=== PATIENT | male | born 1965 | race Caucasian/White ===

== ENCOUNTER 2016-07-12 18:03 | Emergency (ER) | payer MEDICAID, OTHER ==
[~2016-07-12] VITALS: Ht 182.9 cm; Wt 80.5 kg
[2016-07-12 18:13] VITALS: Ht 182.9 cm; Wt 80.5 kg
--- NOTE | 2016-07-12 19:46 | ERD ---
ER Documentation Chief Complaint Date/Time DATE: 07/12/16 TIME: 19:44 Chief Complaint WRIST PAIN AFTER LIFTING HEAVY OBJECTS TODAY. NO DEFORMITY, GOOD PULSE HPI 51-year-old male who presented emergency room for right wrist pain. Stated that the pain started after he was lifting objects while working. Denies headache, loss of consciousness, dizziness, blurry vision, changes in vision, photophobia, facial pain, ear pain, throat pain, difficulty swallowing, neck pain, shoulder pain, chest pain, cough, hemoptysis, abdominal pain, back pain, loss of appetite, nausea, vomiting, hematochezia, diarrhea, constipation, urinary symptoms, bladder and bowel incontinences, numbness or tingling sensation, difficulty walking, recent travel, recent exposure to illness, recent antibiotic use in the last 3 months, fever, chills. Allergies to naproxen, hydrocodone. Past medical history of hypertension, Anxiety. Surgical history of right wrist surgery with screw. Medication: Lisinopril, Prozac. Social history: Self-employed. Right-handed. Smokes about 20 sticks of cigarettes a day. Denies use of alcoholic beverages, use of illegal drugs. ROS All systems reviewed and are negative except as per history of present illness. Medications Home Meds Active Scripts Tramadol HCl (Tramadol HCl) 50 Mg Tablet, 50 MG PO Q4 Y for PAIN, #15 TAB Prov:KAREN KITCHEN 07/12/16 Allergies Allergies: Coded Allergies: naproxen (Unverified Allergy, Unknown, 07/12/16) PMhx/Soc Medical and Surgical Hx: pt denies Surgical Hx Hx Cardiac Disorders: Yes (HTN ) Hx Psychiatric Problems: Yes (Depression ) Hx Miscellaneous Medical Probl: Yes (Chronic pain possibly on percocet) Hx Alcohol Use: No Hx Substance Use: No Hx Tobacco Use: Yes Smoking Status: Current every day smoker Physical Exam Vitals Vital Signs Date Time Temp Pulse Resp B/P Pulse Ox O2 Delivery O2 Flow Rate FiO2 07/12/16 21:53 98.6 20 142/80 98 Room Air 07/12/16 18:13 99.3 80 20 136/86 98 Physical Exam CONSTITUTIONAL: Well-appearing; well-nourished; in no apparent distress. HEAD: Normocephalic; atraumatic. EYES: Conjunctiva clear, sclera non-icteric, EOM intact. PERRL Ears: Hearing intact. EACs clear, TMs non-bulging, non-inflamed, translucent & mobile, ossicles normal appearance, No obstructions, no erythema, no discharges Nose: No obstructions. No polyps. No external lesions. Mucosa non-inflamed. No external lesions, septum and turbinates normal. No rhinorrhea. No discharges. Frontal sinus is non-tender to palpation. Maxillary sinus is non-tender to palpation. MOUTH: Moist mucous membranes, no lesion, no obstructions, no vesicles, no thrush, patent airway Throat: Uvula in midline. Right tonsil is +1 with no erythema, no exudate. Left tonsil is +1 with no erythema, no exudate. Tolerating secretions well. Good gag reflex. Patent airway. Neck: Supple, without lesions, bruits, or adenopathy. No mass. Thyroid non- enlarged and non-tender to palpation. CHEST: Symmetrical chest. Respirations even and not labored. No retractions noted. CARDIOVASCULAR: Normal S1, S2. RRR. No murmurs, gallops. RESPIRATORY: Normal chest excursion with respiration; breath sounds clear and equal bilaterally; no wheezes, rhonchi, or rales. Breathing even and unlabored. Speaking in clear, full, and complete sentences w/ ease. ABDOMEN: Normal bowel sounds normal. Soft, round, non-distended, non-guarding, no tenderness, no rebound, no organomegaly, no masses, no pulsating abdominal mass. No hernia. No peritoneal signs. : No CVA tenderness. BACK: Symmetrical shoulder. Spine is midline without deformity, tenderness. No evidence of trauma or deformity. PELVIS: Stable pelvis. No evidence of trauma or deformity. MUSCULOSKELETAL: Normal gait and station. No misalignment, asymmetry, crepitation, defects, tenderness, masses, effusions, decreased range of motion, instability, atrophy or abnormal strength or tone in the head, neck, spine, ribs , pelvis or extremities except tenderness to right wrist on palpation on the volar and dorsal area. Fingers are unremarkable with good and full function of flexion and extension with a score of 5/5. No obvious deformity/discoloration/ swelling. Circulation sensation is intact. Right elbow is unremarkable. Right shoulder is unremarkable. Left upper extremities unremarkable. No neurovascular deficits.. No calf tenderness. NEUROVASCULAR: Distal pulses are present. Pedal pulse are present, equal, and normal. Capillary refills are < 2 seconds. NEUROLOGIC: Alert and oriented x4. Speaks full and clear sentences. Cranial Nerves II-XII normal. Sensation to pain, touch, and proprioception normal. Grossly unremarkable. No neurologic deficits. Romberg test is negative. PSYCHOLOGICAL: The patients mood and manner are appropriate. No hallucinations , delusions. Not SI. Not HI. Has the capacity to decide for self SKIN: Normal for age and ethnicity; warm; dry; good turgor; no apparent lesions or exudates. No rashes, hives, discoloration. Intact. Results 24 hrs Current Medications Medications (Trade) Dose Ordered Sig/Annetta Route PRN Reason Start Time Stop Time Status Last Admin Dose Admin Tramadol HCl (Ultram) 50 mg ONCE ONCE PO 07/12/16 22:00 07/12/16 22:00 DC 07/12/16 21:51 Procedures/MDM Examination: Please see physical examination. Disease process, medical treatment was explained to the patient and family member. They verbalized understanding and agreed with the diagnostic tests, medical treatment, and follow-up care. Radiology: Right wrist x-ray Impression: No fracture or dislocation of the right wrist. Status post screw fixation of the distal radial diametaphysis and is capital bone. Treatment: Velcro splint Re-evaluation: Denies headache, dizziness, blurry vision, neck pain, shoulder pain, chest pain, abdominal pain, nausea, vomiting. No episode of emesis in the emergency department. States that he feels much better this time. No neurovascular deficits prior to and after the application of Velcro splint. No neurological deficits. Consultation: None. Differential diagnosis: Fracture versus dislocation versus contusion versus sprain versus chronic pain Medical decision makin-year-old male who presented emergency room for right wrist pain. Stated that the pain started after he was lifting objects while working. Patient's complaint, patient's history about his complaint, my physical findings, diagnostic test results, my reevaluation are consistent with final diagnosis of wrist/hand injury/sprain. Medications prescribed are the following: Tramadol. Patient and family member are made aware of the side effects and adverse reactions of the medications prescribed. Instructed on when to seek emergent and medical attention in case allergic/anaphylactic reactions or severe side effects and or adverse reactions to medications. Patient and family member verbalized understanding. Patient instructed Instructed to follow-up with his PCP in 24-48 hours. PCP to refer patient to orthopedic doctor if pain continues. Instructed to Call 911 for chest pain, shortness of breath. Advised to come back here in ED as soon as possible for severity of symptoms which includes but not limited to: any new symptoms; shortness of breath/difficulty of breathing; cardiovascular changes; severe gastrointestinal symptoms; signs and symptoms of bleeding and or infection; signs of compartment syndrome/neurovascular changes; neurological changes/deficits. Patient and family member verbalized understanding. Upon discharge, patient is alert and oriented x 4, speaks full and clear sentences, denies pain, has no neurological deficits, has no neurovascular deficits, difficulty of breathing. Breathing even and unlabored. Lung sounds are clear to auscultation. Not in distress. Appears comfortable. Ambulatory with steady gait. Appears satisfied with care provided here in ED. Departure Diagnosis: Primary Impression: Wrist injury Condition: Stable Additional Instructions: Patient instructed Instructed to follow-up with his PCP in 24-48 hours. PCP to refer patient to orthopedic doctor if pain continues. Instructed to Call 911 for chest pain, shortness of breath. Advised to come back here in ED as soon as possible for severity of symptoms which includes but not limited to: any new symptoms; shortness of breath/difficulty of breathing; cardiovascular changes; severe gastrointestinal symptoms; signs and symptoms of bleeding and or infection; signs of compartment syndrome/neurovascular changes; neurological changes/deficits. Patient and family member verbalized understanding. KAREN KITCHEN July 12, 2016 19:46 KAREN KITCHEN July 12, 2016 19:46
--- NOTE | 2016-07-12 20:48 | RADRPT ---
PROCEDURE: XR Wrist. CLINICAL INDICATION: Wrist pain. TECHNIQUE: Three views of the right wrist. COMPARISON: None available. FINDINGS: No fracture or dislocation is identified. The patient status post screw fixation of the distal radia l diametaphysis and the capitate bone. The joint spaces are preserved. There is no significant soft tissue swelling. IMPRESSION: 1. No fracture or dislocation of the right wrist. 2. Status post screw fixation of the distal radial diametaphysis and the capitate bone. RPTAT: HTAR .Fab Talbert MD, Date Time Electronically viewed and signed by .Fab Talbert MD, on 07/12/2016 20:47 .R/
[2016-07-12] MEDS ORDERED: TRAM50TA2 PO (21:38)
[2016-07-12 21:53] VITALS: BP 142/80; RESP 20; TEMP 98.6
[2016-07-12] MEDS ORDERED: traMADol 50 MG TAB PO ONE (22:00)
== END 2016-07-12 21:54 | disposition home or self-care (01) ==
LOC: FTE 18:03
DX: S69.91XA Unspecified injury of right wrist, hand and finger(s), initial encounter (principal); I10 Essential (primary) hypertension; F17.210 Nicotine dependence, cigarettes, uncomplicated; X50.0XXA Overexertion from strenuous movement or load, initial encounter; Y92.89 Other specified places as the place of occurrence of the external cause
CPT/HCPCS: 29125; 73110; Z7502; Z7610